=== PATIENT | female | born 1975 | race Caucasian/White ===

== ENCOUNTER 2021-04-03 20:40 | Emergency (ER) | payer OTHER ==
[~2021-04-03] VITALS: Ht 162.6 cm; Wt 127.0 kg
[2021-04-03 20:55] VITALS: BP_SYST 146
[2021-04-03] MEDS ORDERED: KETOROLAC TROMETHAMINE 60 MG/2 ML VIAL IM ONE (21:30)
[2021-04-03] MEDS ORDERED: CYCLOBENZAPRINE HCL 10 MG TABLET (FLEXERIL) PO ONE (21:30)
[2021-04-03 22:47] LABS: BILIRUBIN,URINE NEGATIVE (NEGATIVE); BLOOD, URINE 1+ (NEGATIVE); CLARITY/URINE CLEAR (CLEAR); COLOR,URINE YELLOW (YELLOW); GLUCOSE,URINE NEGATIVE (NEGATIVE); KETONES,URINE NEGATIVE (NEGATIVE); LEUKOCYTE ESTERASE ,URINE 1+ (NEGATIVE); NITRITE, URINE NEGATIVE (NEGATIVE); PH,URINE 5.5 (5.0-8.0); PROTEIN URINE NEGATIVE (NEGATIVE); UROBILINOGEN,URINE 0.2 (0.2-1.0)
[2021-04-03 22:53] LABS: BACTERIA,URINE FEW /HPF (None Seen)
[2021-04-03] MEDS ORDERED: NAPR-1172 PO (22:56)
[2021-04-03] MEDS ORDERED: CYCL-10 PO (22:56)
[2021-04-03] MEDS ORDERED: NITR-85 PO (23:41)
[2021-04-03 23:45] VITALS: BP_SYST 146
== END 2021-04-03 23:45 | disposition home or self-care (01) ==
LOC: SED 20:40
DX: N39.0 Urinary tract infection, site not specified (principal); M54.5 Low back pain; Z88.0 Allergy status to penicillin; Z79.899 Other long term (current) drug therapy
CPT/HCPCS: 81000; 81025; 87086; 96372; 99283; J1885

== ENCOUNTER 2023-03-18 15:36 | Inpatient (IN) | payer OTHER ==
[~2023-03-18] VITALS: Ht 162.6 cm; Wt 127.0 kg
[~2023-03-18 15:36] MED LIST: CYCL10TA24 PO; NAPR-1172 PO; NITR-85 PO
[2023-03-18 16:13] VITALS: BP_SYST 157; PULSE 66; RESP 20; TEMP 97.9; O2SAT 98
[2023-03-18] MEDS ORDERED: ONDANSETRON 4 MG ODT TAB PO ONE (16:30)
[2023-03-18] MEDS ORDERED: ONDANSETRON 4 MG ODT TAB ONE (16:33)
[2023-03-18 16:42] LABS: BILIRUBIN,URINE NEGATIVE (NEGATIVE); BLOOD, URINE 1+ (NEGATIVE); COLOR,URINE YELLOW (YELLOW); GLUCOSE,URINE NEGATIVE (NEGATIVE); KETONES,URINE TRACE (NEGATIVE); NITRITE, URINE NEGATIVE (NEGATIVE); PH,URINE 5.5 (5.0-8.0); PROTEIN URINE NEGATIVE (NEGATIVE); UROBILINOGEN,URINE 0.2 (0.2-1.0)
[2023-03-18 16:57] LABS: CLARITY/URINE HAZY (CLEAR); LEUKOCYTE ESTERASE ,URINE 1+ (NEGATIVE)
[2023-03-18 16:58] LABS: BACTERIA,URINE FEW /HPF (None Seen); MUCUS,URINE None Seen /LPF (None Seen); RBC,URINE 0-3 /HPF (0-3)
[2023-03-18 17:11] LABS: BASOPHILS # (AUTO) 0.1 K/uL (0.0-0.2); BASOPHILS % (AUTO) 0.7 % (0.0-2.0); EOSINOPHILS # (AUTO) 0.2 K/uL (0.0-0.4); EOSINOPHILS % (AUTO) 2.1 % (0.0-4.0); HEMATOCRIT 40.2 % (36-48); HEMOGLOBIN 13.2 g/dL (12.0-16.0); LYMPHOCYTES # (AUTO) 2.1 K/uL (1.0-5.5); LYMPHOCYTES % (AUTO) 23.1 % (20.5-51.5); MEAN CORPUSCULAR HEMOGLOBIN 30 pg (27-31); MEAN CORPUSCULAR HGB CONC 33 % (32-36); MEAN CORPUSCULAR VOLUME 91 fL (79.0-98.0); MONOCYTES # (AUTO) 0.7 K/uL (0.0-1.0); MONOCYTES % (AUTO) 7.2 % (1.7-9.3); NEUTROPHILS # (AUTO) 6.1 K/uL (1.8-7.7); NEUTROPHILS % (AUTO) 66.9 % (40.0-70.0); PLATELET COUNT (AUTO) 353 K/uL (130-430); RED BLOOD CELL COUNT(AUTO) 4.42 MIL/uL (4.2-6.2); RED CELL DISTRIBUTION WIDTH 15.5 % (9.0-15.0)
[2023-03-18 17:19] LABS: ALBUMIN 3.1 g/dL (3.4-4.8); CALCIUM 8.6 mg/dL (8.4-11.0); CREATININE 0.83 mg/dL (0.55-1.30); TOTAL BILIRUBIN 0.4 mg/dL (0.0-1.0)
[2023-03-18] MEDS ORDERED: KETOROLAC TROMETHAMINE 60 MG/2 ML VIAL IM ONE (19:00)
[2023-03-18] MEDS ORDERED: DIPHENHYDRAMINE INJ 50 MG/ML VIAL IVP ONE (19:30)
[2023-03-18] MEDS ORDERED: NACL 0.9% 1,000 ML IV ONE (19:30)
[2023-03-18] MEDS ORDERED: METOCLOPRAMIDE HCL 10 MG/2 ML VIAL IVP ONE (19:30)
[2023-03-18] MEDS ORDERED: cefTRIAXone 2 GM VIAL ONE (20:11)
[2023-03-18 21:40] VITALS: BP_SYST 121; PULSE 68; RESP 17; TEMP 97
[2023-03-18] MEDS: D5/0.45 NS 1,000 ML IV SCH (22:15)
[2023-03-18] MEDS ORDERED: HYDROcodone/ACETAMIN 10-325 MG TAB PO PRN (23:30)
[2023-03-18] MEDS ORDERED: NALOXONE HCL 0.4 MG/ML AMP (NARCAN) IVP PRN ×2 (23:30)
[2023-03-18] MEDS ORDERED: HYDROcodone/ACETAMIN 5-325 MG TAB (NORCO/ VICODIN) PO PRN (23:30)
[2023-03-18] MEDS ORDERED: LORazepam 2 MG/ML VIAL IVP PRN (23:30)
[2023-03-19] VITALS (7 sets, daily range): BP systolic 103–123; PULSE 60–67; RESP 16–18; TEMP 96.9–97.8; O2SAT 94–97
[2023-03-19] MEDS: D5/0.45 NS 1,000 ML IV SCH ×2 (06:00→15:07)
[2023-03-19 07:53] LABS: CALCIUM 7.7 mg/dL (8.4-11.0); CREATININE 0.76 mg/dL (0.55-1.30)
[2023-03-19 08:06] LABS: BASOPHILS % (AUTO) 0.3 % (0.0-2.0); EOSINOPHILS # (AUTO) 0.2 K/uL (0.0-0.4); HEMATOCRIT 36.9 % (36-48); LYMPHOCYTES # (AUTO) 1.6 K/uL (1.0-5.5); LYMPHOCYTES % (AUTO) 21.1 % (20.5-51.5); MEAN CORPUSCULAR HEMOGLOBIN 30 pg (27-31); MEAN CORPUSCULAR HGB CONC 32 % (32-36); MEAN CORPUSCULAR VOLUME 92 fL (79.0-98.0); MONOCYTES # (AUTO) 0.5 K/uL (0.0-1.0); MONOCYTES % (AUTO) 6.9 % (1.7-9.3); NEUTROPHILS # (AUTO) 5.1 K/uL (1.8-7.7); NEUTROPHILS % (AUTO) 69.7 % (40.0-70.0); PLATELET COUNT (AUTO) 321 K/uL (130-430); RED CELL DISTRIBUTION WIDTH 15.2 % (9.0-15.0); WHITE BLOOD COUNT (AUTO) 7.4 K/uL (4.8-10.8)
[2023-03-19] MEDS: ACETAMINOPHEN 325 MG TABLET PO PRN ×2 (08:47→17:56)
[2023-03-19] MEDS: ONDANSETRON HCL 4 MG/2 ML VIAL IVP PRN ×2 (14:46→20:50)
[2023-03-19] MEDS: cefTRIAXone 1 GM in D5W 50 ML IV SCH (20:48)
[2023-03-20] VITALS (7 sets, daily range): BP systolic 120–150; PULSE 64–73; RESP 16–17; TEMP 97.2–97.9; O2SAT 96–98
[2023-03-20] MEDS: D5/0.45 NS 1,000 ML IV SCH ×3 (04:08→22:34)
[2023-03-20 05:27] LABS: BASOPHILS % (AUTO) 0.6 % (0.0-2.0); EOSINOPHILS # (AUTO) 0.3 K/uL (0.0-0.4); EOSINOPHILS % (AUTO) 4.5 % (0.0-4.0); HEMATOCRIT 35.8 % (36-48); HEMOGLOBIN 11.7 g/dL (12.0-16.0); LYMPHOCYTES # (AUTO) 2.2 K/uL (1.0-5.5); LYMPHOCYTES % (AUTO) 38.3 % (20.5-51.5); MEAN CORPUSCULAR HEMOGLOBIN 30 pg (27-31); MEAN CORPUSCULAR HGB CONC 33 % (32-36); MEAN CORPUSCULAR VOLUME 92 fL (79.0-98.0); MONOCYTES # (AUTO) 0.5 K/uL (0.0-1.0); MONOCYTES % (AUTO) 7.8 % (1.7-9.3); NEUTROPHILS # (AUTO) 2.9 K/uL (1.8-7.7); NEUTROPHILS % (AUTO) 48.8 % (40.0-70.0); PLATELET COUNT (AUTO) 314 K/uL (130-430); RED CELL DISTRIBUTION WIDTH 15.6 % (9.0-15.0); WHITE BLOOD COUNT (AUTO) 5.8 K/uL (4.8-10.8)
[2023-03-20 05:28] LABS: ERYTHROCYTE SEDIMENTATION RATE 7 MM/HR (0-20)
[2023-03-20 06:00] LABS: ALBUMIN 2.6 g/dL (3.4-4.8); CALCIUM 7.4 mg/dL (8.4-11.0); CREATININE 0.83 mg/dL (0.55-1.30); TOTAL BILIRUBIN 0.2 mg/dL (0.0-1.0)
[2023-03-20] MEDS: ACETAMINOPHEN 325 MG TABLET PO PRN ×2 (09:42→17:40)
[2023-03-20] MEDS: ONDANSETRON HCL 4 MG/2 ML VIAL IVP PRN (10:23)
[2023-03-20] MEDS: cefTRIAXone 1 GM in D5W 50 ML IV SCH (22:31)
[2023-03-21 01:00] VITALS: BP_SYST 124; PULSE 68; RESP 16; TEMP 96.9; O2SAT 96
[2023-03-21 07:00] VITALS: BP_SYST 149; PULSE 69; RESP 18; TEMP 97.7; O2SAT 96
[2023-03-21] MEDS: D5/0.45 NS 1,000 ML IV SCH (07:51)
[2023-03-21 08:00] VITALS: BP_SYST 149; PULSE 69; RESP 18; TEMP 97.7; O2SAT 96
[2023-03-21] MEDS ORDERED: METH1TAB79 PO (11:31)
[2023-03-21 12:00] VITALS: BP_SYST 133; PULSE 57; RESP 20; TEMP 97.1; O2SAT 97
[2023-03-21 13:10] VITALS: BP_SYST 149; PULSE 69; RESP 18; TEMP 97.7; O2SAT 96
[2023-03-21 16:00] VITALS: BP_SYST 131; PULSE 59; RESP 18; TEMP 97.2; O2SAT 99
== END 2023-03-21 15:00 | disposition home or self-care (01) | DRG 389 ==
LOC: SED 15:36 → SMU 19:47
PROVIDERS: ADMIT Preventive Medicine Preventive Medicine/Occupational Environmental Medicine; ATTEND Specialist
DX: K56.7 Ileus, unspecified (principal); N10 Acute pyelonephritis; Z68.42 Body mass index [BMI] 45.0-49.9, adult; N39.0 Urinary tract infection, site not specified; E66.01 Morbid (severe) obesity due to excess calories; M54.30 Sciatica, unspecified side; Z90.49 Acquired absence of other specified parts of digestive tract; Z88.0 Allergy status to penicillin; Z87.440 Personal history of urinary (tract) infections
CPT/HCPCS: 36415; 74018; 76376; 80048; 80053; 81000; 83690; 85025; 85651-TC; 87040; 87086; 96365; 96372; 96375; 99285; J0696; J1200; J1885; J2405; J2765; J7060; Q0162